=== PATIENT | female | born 1995 | race Caucasian/White ===

== ENCOUNTER → 2019-02-09 | Outpatient (CLI) | payer BC ==
--- NOTE | 2019-02-09 11:40 | Diagnostic Imaging Report ---
TECHNIQUE: Computed tomography imaging of the LEFT ANKLE was performed WITHOUT injected contrast. COMPARISON: None available. HISTORY: Left ankle pain FINDINGS: Small osteochondral fracture of the lateral talar dome (axial measurement 0.9 x 0.6 cm) with displaced fragment best seen on coronal image 30 through 34. No additional fracture visualized. Thickening of the region of the lateral ankle ligaments including the ATFL and CFL likely due to sprain/partial tear. No thickening of the tibiofibular ligaments. The peroneal tendons are normal anatomic location. No subluxation. IMPRESSION: Ankle inversion injury with small osteochondral fracture to the lateral talar dome with displaced fragment and probable partial tearing of the lateral ankle ligaments. Signed by: Dr. Deacon Conner M.D. on 02/09/2019 11:37 AM
== END ==
LOC: CT 10:16
PROVIDERS: ATTEND Podiatrist Foot & Ankle Surgery
DX: S93.432A Sprain of tibiofibular ligament of left ankle, initial encounter (principal)

== ENCOUNTER → 2019-03-14 | Day surgery (SDC) | payer BC ==
--- NOTE | 2019-03-13 13:06 | Diagnostic Imaging Report ---
EXAMINATION: CHEST 2 VIEWS INDICATION: Ankle pain. Preop for surgery. ^MD ORDER ^[id number] ^1230 ^PRE ADMIT COMPARISON: None FINDINGS: TUBES and LINES: None. LUNGS: Lungs are well inflated. Lungs are clear. There is no evidence of pneumonia or pulmonary edema. PLEURA: No pleural effusion or pneumothorax. HEART AND MEDIASTINUM: The cardiomediastinal silhouette is unremarkable. BONES AND SOFT TISSUES: No acute osseous lesion. Soft tissues are unremarkable. UPPER ABDOMEN: No free air under the diaphragm. IMPRESSION: No acute thoracic abnormality. Signed by: Dr. Sergey Murphy M.D. on 03/13/2019 1:03 PM
[~2019-03-14] MED LIST: ACETAMINOPHEN 1000 MG/100 ML IV ONE; BACITRACIN 50,000 UNIT VIAL ONE; BUPIVACAINE HCL 0.5% INJ 30 ML VIAL INJ ONE; DEXAMETHASONE SOD PHOS INJ 4 MG/ML VIAL ONE; FENTANYL CITRATE/PF 100MCG/2 ML INJ ONE; MIDAZOLAM HCL 2 MG/2 ML VIAL ONE; NAPROXEN250 MG PO; ONDANSETRON HCL INJ 2MG/ML 2ML 2 MG/ML VIAL ONE; SEVOFLURANE INHAL SOLN 250 ML PEN BTL ONE
--- OUTSIDE RECORDS SUMMARY | 2019-03-14 06:02 | XMS REPORT ---
Author Author [facility] Address Unknown Phone Unavailable Care Team Providers Care Computer Assistant Name Role Phone Elida CHAKRABORTY Unavailable Unavailable Problems This patient has no known problems. Allergies, Adverse Reactions, Alerts This patient has no known allergies or adverse reactions. Medications This patient has no known medications. Results Test Description Test Time Test Comments Text Results Atomic Results Result Comments CHEST 2 VIEWS 2019-03-13 13:03:00 [facility] [address] [address] Patient Name: VIRI HAYDEN MR #: [id number] : 1995 Age/Sex: 23/F Req #: [id number] Adm Physician: Ordered by: Elida CHAKRABORTY DPM Report #: [id number] Location: OR Room/Bed: Procedure: [id number] DX/CHEST 2 VIEWS Exam Date: 03/13/19 Exam Time: 1230 REPORT STATUS: Signed EXAMINATION: CHEST 2 VIEWS INDICATION: Ankle p ain. Preop for surgery. MD ORDER [id number] 1230 PRE ADMIT COMPARISON: None FINDINGS: TUBES and LINES: None. LUNGS: Lungs are well inflated. Lungs are clear. There is no evidence of pneumonia or pulmonary edema. PLEURA: No pleural effusion or pneumothorax. HEART AND MEDIASTINUM: The cardiomediastinal silhouette is unremarkable. BONES AND SOFT TISSUES: No acute osseous lesion. Soft tissues are unremarkable. UPPER ABDOMEN: No free air under the diaphragm. IMPRESSION: No acute thoracic abnormality. Signed by: Dr. Sergey Murphy M.D. on 03/13/2019 1:03 PM Dictated By: SERGEY MURPHY MD, MD [id number] Transcribed By: EDMUND on 03/13/19 [id number] COPY TO: Elida CHAKRABORTY DPM CT ANKLE LEFT WO 2019-02-09 11:32:[address] [address] Patient Name: VIRI HAYDEN MR #: [id number] : 1995 Age/Sex: 23/F Req #: [id number] Adm Physician: Ordered by: Elida CHAKRABORTY DPM Report #: [id number] Location: CT Room/Bed: Procedure: [id number] CT/CT ANKLE LEFT WO Exam Date: Exam Time: REPORT STATUS: Signed TECHNIQUE: Computed tomography imaging of the LEFT ANKLE was perform ed WITHOUT injected contrast. COMPARISON: None available. HISTORY: Left ankle pain FINDINGS: Small osteochondral fracture of the lateral talar dome (axial measurement 0.9 x 0.6 cm) with displaced fragment best seen on coronal image 30 through 34. No additional fracture visualized. Thickening of the region of the lateral ankle ligaments including the ATFL and CFL likely due to sprain/partial tear. No thickening of the tibiofibular ligaments. The peroneal tendons are normal anatomic location. No subluxation. IMPRESSION: Ankle inversion injury with small osteochondral fracture to the lateral talar dome with displaced fragment and probable partial tearing of the lateral ankle ligaments. Signed by: Dr. Bessy Jones M.D. on 02/09/2019 11:37 AM Dictated By: BESSY JONES MD 36 Transcribed By: EDMUND on 02/09/191136 COPY TO: Elida CHAKRABORTY DPM
[2019-03-14 08:15] VITALS: BP 116/80
--- NOTE | 2019-03-14 13:47 | Operative Report ---
DATE OF PROCEDURE: 03/14/2019 SURGEON: Perla Bowers DPM PREOPERATIVE DIAGNOSES: 1. Left osteochondral defect ankle. 2. Left ruptured anterior talofibular as well as calcaneofibular ligament. POSTOPERATIVE DIAGNOSES: 1. Left osteochondral defect ankle. 2. Left ruptured anterior talofibular as well as calcaneofibular ligament. PLANNED PROCEDURE: 1. Left repair of osteochondral defect. 2. Brostrom. [employer] ARCHITECT: Perla Bowers DPM ANESTHESIA: General with a postoperative block consisting of 15 mL of 0.5% Marcaine plain. HEMOSTASIS: Pneumatic thigh tourniquet set at 350 mmHg for a total time of approximately 40 minutes. MATERIALS: One GII bone anchor, 0 Ethibond, 3-0 Vicryl, 4-0 Prolene. ESTIMATED BLOOD LOSS: Less than 10 mL. PATHOLOGY: None. PROCEDURE NOTE: The patient was seen in the preop waiting room, where the correct procedure and site was marked and identified. The patient was brought into the operating room, placed on the operating table in the supine position, general anesthesia was initiated. At this time, a well-padded pneumatic tourniquet was placed about the patient's left thigh. The left foot, ankle, and leg were then scrubbed, prepped, and draped in the usual aseptic manner. The left foot, ankle, and leg were exsanguinated with an Esmarch bandage and the pneumatic thigh tourniquet was inflated to 350 mmHg for a total time of approximately 40 minutes. Attention was directed to the lateral aspect of the patient's left ankle, where a reverse-J type incision was made at the anterior aspect of the fibula extending distally and inferior to the distal fibula. The incision was carried through subcutaneous tissue it from deeper underling structures, all vital neurovascular structures were identified and retracted medially and laterally, all bleeders were cauterized or ligated as deemed necessary. It should be noted that there was a moderate amount of subcutaneous fat in the area. The dissection was carried down to the level of the retinaculum of the ankle joint capsule. Utilizing a #15 blade, a reverse-J type incision was made parallel to the skin incision extending from the anterior aspect of the fibula inferiorly to the inferior distal aspect of the fibula. It should be noted that upon incision, synovial fluid from the joint was expressed. Utilizing saline, the ankle joint was copiously irrigated and a small 0.3 cm x 0.3 cm osteophyte fragment was noted. This was excised and passed off to the back table. Utilizing intraoperative fluoroscopy, there was noted to be no loose fragments within the ankle joint. At this time, upon exploration of the ankle joint, a lateral central osteochondral defect was noted in the lateral aspect of the talar dome. Utilizing a pituitary rongeur, the area was debrided and cleansed down to anatomic alignment. Next, utilizing osteochondral pick, subchondral drilling was performed to allow for promotion of cartilage. The wound was again flushed with copious amounts of sterile saline. Next, utilizing a GII bone anchor per manufacture protocol was drilled into the anterior aspect of the distal fibula. The bone anchor was placed and pulled to allow for the wings to deploy and was noted to be with good tension. This was confirmed via intraoperative fluoroscopy to be in the correct location. The lateral aspect of the anterior talofibular ligament as well as the ankle joint capsule was attached to the bone anchor to the anterior aspect of the fibula and the tension was noted to be in anatomic alignment. Next, utilizing 0 Ethibond suture, the Gibbs modification was performed with the retinaculum repair with a snibn-ssne-adnm type suture. The subcutaneous tissue was reapproximated with 3-0 Vicryl and the skin was closed using a simple interrupted suture with 4-0 Prolene. The incision site was then dressed with Adaptic, 4x4s, Kerlix, 4 x 30 posterior splint, 4 inch Rick wrap, and a 6 inch Rick wrap. The patient tolerated procedure and anesthesia well. The patient was transferred to the postoperative recovery room with vital signs stable and vascular status intact. The patient was monitored there for a short period time before being sent home with the following written and oral instructions. 1. Keep the dressing clean, dry, and intact. 2. The patient is to remain nonweightbearing in a posterior splint and to avoid any ambulation until being seen in the office. 3. The patient is given the office number and told to contact us if any problems should arise. LANDON Barone/ERIKAL /[id number]
== END | disposition home or self-care (01) ==
LOC: OR 06:00
PROVIDERS: ATTEND Podiatrist Foot & Ankle Surgery
DX: M93.272 Osteochondritis dissecans, left ankle and joints of left foot (principal); M25.772 Osteophyte, left ankle; S93.412A Sprain of calcaneofibular ligament of left ankle, initial encounter; S93.492A Sprain of other ligament of left ankle, initial encounter; E66.9 Obesity, unspecified; X58.XXXA Exposure to other specified factors, initial encounter; Z01.810 Encounter for preprocedural cardiovascular examination; Z01.812 Encounter for preprocedural laboratory examination; Z01.818 Encounter for other preprocedural examination
CPT/HCPCS: 27698; 28302; 71046; 81025; 93005; J0131; J1100; J2250; J2405